=== PATIENT | male | born 1970 | race Caucasian/White ===

== ENCOUNTER 2017-06-18 13:15 | Observation (INO) | payer OTHER ==
--- NOTE | 2017-06-18 13:40 | ED PDOC ---
Arrival/HPI - General Chief Complaint: Chest Pain Time Seen by Provider: 06/18/17 13:31 Historian: Patient - History of Present Illness Narrative History of Present Illness (Text): you were treated in the ED today for hx of heart disease with stent and on aspirin/plavix which you take consistently, hypertension, cholesterol and today about 20-30min prior to ED visit right chest pain which is going to the right shoulder/back but otherwise without any trauma/injury/nausea/vomiting/headache/ dizziness/difficulty breathing/abdomen pain/numbness/tingling/loss of limb function/pain with urination/travel/prior blood clots/prior cancer. 06/18/17 13:38 PMD: Dr. Jessica Ortiz Time/Duration: 1/2 hour Symptom Onset: Sudden Symptom Course: Unchanged Quality: Aching Severity Level: 1 Activities at Onset: Rest Context: Sitting Past Medical History - Provider Review Nursing Documentation Reviewed: Yes - Travel History Have you recently traveled outside [place] w/in the past 3 mons?: No - Infectious Disease Hx of Infectious Diseases: None - Cardiac Hx Hypertension: Yes Other/Comment: cardiac stent - Psychiatric Hx Substance Use: No Family/Social History - Physician Review Nursing Documentation Reviewed: Yes Family/Social History: No Known Family HX Smoking Status: Unknown If Ever Smoked Hx Alcohol Use: No Hx Substance Use: No Allergies/Home Meds Allergies/Adverse Reactions: Allergies No Known Allergies Allergy (Verified 06/18/17 13:35) Home Medications: Home Meds Medication Instructions Recorded Confirmed Aspirin [Ecotrin] 81 mg PO DAILY 06/18/17 06/18/17 Clopidogrel [Plavix] 75 mg PO DAILY 06/18/17 06/18/17 Review of Systems - Review of Systems Constitutional: Normal Eyes: Normal ENT: Normal Respiratory: Normal Cardiovascular: Chest Pain Gastrointestinal: Normal Genitourinary Male: Normal Musculoskeletal: Normal Skin: Normal Neurological: Normal Endocrine: Normal Hemo/Lymphatic: Normal Psychiatric: Normal Physical Exam Vital Signs Reviewed: Yes Vital Signs Temp Pulse Resp BP Pulse Ox 06/18/17 13:36 98.4 F 115 H 20 164/87 H 99 06/18/17 13:35 97.8 F 108 H 17 164/87 H 98 Temperature: Afebrile Blood Pressure: Normal Pulse: Regular Respiratory Rate: Normal Appearance: Positive for: Well-Appearing, Non-Toxic, Comfortable Pain Distress: None Mental Status: Positive for: Alert and Oriented X 3 - Systems Exam Head: Present: Atraumatic, Normocephalic Pupils: Present: PERRL Extroacular Muscles: Present: EOMI Conjunctiva: Present: Normal Ears: Present: Normal Mouth: Present: Moist Mucous Membranes Pharnyx: Present: Normal Nose (External): Present: Atraumatic Nose (Internal): Present: Normal Inspection Neck: Present: Normal Range of Motion Respiratory/Chest: Present: Clear to Auscultation, Good Air Exchange Cardiovascular: Present: Regular Rate and Rhythm Abdomen: No: Tenderness, Distention, Normal Bowel Sounds, Peritoneal Signs, Rebound, Guarding, McBurney's Point Tender, Rovsing's Sign Present, Hernias, Feeding Tubes, Ostomy Tubes, Mass/Organomegaly, Scars, Other Back: Present: Normal Inspection Upper Extremity: Present: Normal Inspection Lower Extremity: Present: Normal Inspection Neurological: Present: GCS=15, CN II-XII Intact, Speech Normal, Motor Func Grossly Intact Skin: Present: Warm, Normal Color Psychiatric: Present: Alert, Oriented x 3, Normal Insight, Normal Concentration Medical Decision Making ED Course and Treatment: you were treated in the ED today for hx of heart disease with stent and on aspirin/plavix which you take consistently, hypertension, cholesterol and today about 20-30min prior to ED visit right chest pain which is going to the right shoulder/back but otherwise without any trauma/injury/nausea/vomiting/headache/ dizziness/difficulty breathing/abdomen pain/numbness/tingling/loss of limb function/pain with urination/travel/prior blood clots/prior cancer. You were otherwise breathing easily, pink moist lips, smiling and talking easily, good strength/sensation, alert/oriented, walking easily, clear lungs, no abdomen tenderness, no fever temp 98.7, fast heart rate 108 and repeat 115, stable breathing rate 17, excellent oxygen level 98% room air, elevated blood pressure 164/87 which we recommend repeat in 2-3 days primary care office to determine further treatment, you have blood tests no infection count 5.7, stable blood level hemoglobin 13/platelets 222, stable chemistry, except for low potassium 3.4, heart blood test less than 0.01, low risk of blood clot less than 200, radiology chest xray no acute, ECG normal sinus rhythm, aspirin, morphine, potassium replacement, observation done in the ED with stable. 06/18/17 13:40 06/18/2017 15:22 Chest X-ray IMPRESSION: No acute cardiopulmonary disease appreciated. Dictator: Kemal Nava MD 06/18/17 15:43 d/w Dr. Bauer who accepted the patient for chest pain, telemetry observation. - Lab Interpretations Lab Results: 06/18/17 13:40 06/18/17 13:40 Lab Results 06/18/17 14:40: Urine Color Yellow, Urine Appearance Clear, Urine pH 6.5, Ur Specific [place] <= 1.005, Urine Protein Negative, Urine Glucose (UA) Negative, Urine Ketones Negative, Urine Blood Negative, Urine Nitrate Negative, Urine Bilirubin Negative, Urine Urobilinogen 0.2, Ur Leukocyte Esterase Negative 06/18/17 13:40: PT 11.0, INR 0.97, APTT 28.8, D-Dimer, Quantitative < 200 06/18/17 13:40: Sodium 140, Potassium 3.4 L, Chloride 104, Carbon Dioxide 24, Anion Gap 16, BUN 13, Creatinine 0.9, Est GFR ( Amer) > 60, Est GFR (Non- Af Amer) > 60, Random Glucose 154 H, Calcium 9.8, Magnesium 1.8, Total Bilirubin 0.5, AST 34, ALT 40, Alkaline Phosphatase 72, Lactate Dehydrogenase 459, Total Creatine Kinase 333 H, CK-MB (CK-2) 3.7 H, CK-MB (CK-2) % Cancelled, Troponin I < 0.01, NT-Pro-B Natriuret Pep < 11.1, Total Protein 7.3, Albumin 4.2 , Globulin 3.1, Albumin/Globulin Ratio 1.4 06/18/17 13:40: WBC 5.7, RBC 5.11, Hgb 13.8 L, Hct 40.4 L, MCV 79.1 L, MCH 27.0 , MCHC 34.2, RDW 13.5, Plt Count 222, MPV 10.9, Gran % 53.8, Lymph % (Auto) 36.4 H, [place] % (Auto) 7.5 H, Eos % (Auto) 2.1, Baso % (Auto) 0.2, Gran # 3.09, Lymph # (Auto) 2.1, [place] # (Auto) 0.4, Eos # (Auto) 0.1, Baso # (Auto) 0.01 I have reviewed the lab results: Yes - RAD Interpretation Radiology Orders: 06/18/17 13:36 CHEST PORTABLE [RAD] Stat 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 Operator: Radiologist (see mdm) - EKG Interpretation Interpreted by ED Physician: Yes (NSR, flipped t waves avr, v2, iii) Type: 12 lead EKG - Medication Orders Current Medication Orders: Discontinued Medications Aspirin (Aspirin) 325 mg PO STAT STA Stop: 06/18/17 13:36 Last Admin: 06/18/17 13:47 Dose: 325 mg Morphine Sulfate (Morphine) 4 mg IVP STAT STA Stop: 06/18/17 15:21 Ondansetron HCl (Zofran Inj) 4 mg IVP STAT STA Stop: 06/18/17 15:21 Potassium Chloride (K-Dur 20 Meq Er Tab) 40 meq PO STAT STA Stop: 06/18/17 15:42 Disposition/Present on Arrival - Present on Arrival Any Indicators Present on Arrival: No History of DVT/PE: No History of Uncontrolled Diabetes: No Urinary Catheter: No History of Decub. Ulcer: No History Surgical Site Infection Following: CABG - Mediastinitis, None - Disposition Have Diagnosis and Disposition been Completed?: Yes Diagnosis: Chest pain Disposition: HOSPITALIZED Disposition Time: 15:45 Patient Plan: Telemetry Condition: STABLE Discharge Instructions (ExitCare): Chest Pain (ED) Referrals: Jessica Ortiz MD [Primary Care Provider] - Follow up with primary Forms: [employer] (Japanese)
[2017-06-18 13:54] LABS: BASO # 0.01 K/mm3 (0.0-2.0); BASO % 0.2 % (0.0-3.0); EOS # 0.1 (0.0-0.7); EOS % 2.1 % (1.5-5.0); GRAN # 3.09 (1.4-6.5); GRAN % 53.8 % (50.0-68.0); HEMOGLOBIN 13.8 g/dL (14.0-18.0); LYMPH # 2.1 (1.2-3.4); LYMPH % 36.4 % (22.0-35.0); MEAN CELL VOLUME 79.1 fl (80.0-105.0); MEAN CORPUSCULAR HGB CONC 34.2 g/dl (31.0-37.0); MEAN PLATELET VOLUME 10.9 fl (7.0-11.0); MONO # 0.4 (0.1-0.6); MONO % 7.5 % (1.0-6.0); RBC 5.11 10^6/uL (3.5-6.1); RED CELL DISTRIBUTION WIDTH 13.5 % (11.5-14.5); WHITE BLOOD COUNT 5.7 10^3/ul (4.5-11.0)
[2017-06-18 14:06] LABS: ALB/GLOB RATIO 1.4 (1.1-1.8); ALBUMIN 4.2 g/dL (3.0-4.8); ALT/SGPT 40 U/L (7-56); AST/SGOT 34 U/L (17-59); BLOOD UREA NITROGEN 13 mg/dL (7-21); CALCIUM 9.8 mg/dL (8.4-10.5); GFR AFRICAN-AMERICAN > 60; GFR NON-AFRICAN AMERICAN > 60; INR 0.97 (0.93-1.08); MAGNESIUM 1.8 mg/dL (1.7-2.2); PARTIAL THROMBOPLASTIN TIME 28.8 Seconds (25.1-36.5)
[2017-06-18 14:18] LABS: TROPONIN I < 0.01 ng/mL
[2017-06-18 14:19] LABS: B-TYPE NATRIURETIC PEPTIDE < 11.1 pg/mL (0-450)
[2017-06-18 14:20] LABS: D DIMER < 200 ng/mL (0-243)
[2017-06-18 14:22] LABS: CK-MB 3.7 ng/mL (0.0-3.6)
[2017-06-18 15:12] LABS: PH,URINE 6.5 (4.7-8.0); URINE BILIRUBIN NEGATIVE (NEGATIVE); URINE BLOOD NEGATIVE (NEGATIVE); URINE GLUCOSE (UA) NEGATIVE (NEGATIVE); URINE LEUKOCYTE ESTERASE NEGATIVE Leu/uL (NEGATIVE); URINE NITRATE NEGATIVE (NEGATIVE); URINE PROTEIN NEGATIVE mg/dL (<30 mg/dL); URINE UROBILINOGEN 0.2 E.U./dL (<1 E.U./dL)
[2017-06-18 15:13] LABS: URINE APPEARANCE CLEAR (CLEAR); URINE COLOR YELLOW (YELLOW)
[2017-06-18] MEDS ORDERED: Morphine 4 mg/ml ISec IVP STA (15:20)
--- NOTE | 2017-06-18 15:23 | RAD ---
HISTORY: 46yoM, chest pain COMPARISON: No prior. FINDINGS: LUNGS: No active pulmonary disease. PLEURA: No significant pleural effusion identified, no pneumothorax apparent. CARDIOVASCULAR: Normal. OSSEOUS STRUCTURES: No significant abnormalities. VISUALIZED UPPER ABDOMEN: Normal. OTHER FINDINGS: None. IMPRESSION: No acute cardiopulmonary disease appreciated.
[2017-06-18] MEDS ORDERED: Potassium Chloride 20 mEq ER Tab PO STA (15:41)
--- NOTE | 2017-06-18 17:12 | CP.PCM.HP ---
<LópezSukhPeter - Last Filed: 06/18/17 17:25> History of Present Illness - History of Present Illness History of Present Illness: 46 year old male with past medical history of HLD, HTN, Heart disease status post 1 stent in 2005 presents with chest pain which began earlier today. 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 He tried to sit down and rest but it did not improve so he decided to come in to the hospital. The pain is non reproducible on palpation and he states it radiates to his neck and right arm. He also complains of numbness in his fingers which has improved. Along with the pain, the patient states he had some shortness of breath, increased sweating, but no palpitations. He states he had a stress test done 6 months ago, which was normal. Patient denies taking any medication for the pain. Patient denies abdominal pain, nausea, vomitng, fever, sore throat, or any other complaints at this time. 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 Lyons PMH: HLD, HTN, Heart disease status post 1 stent in 2005 PSH: none Allergies: none Social: denies alcohol, tobacco, or illicit drug use Meds: Per MAR Family Hsitory: denies Present on Admission - Present on Admission Any Indicators Present on Admission: No Review of Systems - Constitutional Constitutional: absent: Chills, Excessive Sweating, Fever, Headache - EENT Eyes: absent: Blurred Vision, Change in Vision Nose/Mouth/Throat: absent: Nasal Congestion, Nasal Discharge - Cardiovascular Cardiovascular: Chest Pain, Chest Pain at Rest, Dyspnea, Pain Radiating to Arm/ Neck/Jaw. absent: Irregular Heart Rhythm, Lightheadedness, Rapid Heart Rate - Respiratory Respiratory: Dyspnea. absent: Cough, Excessive Mucous Production - Gastrointestinal Gastrointestinal: absent: Constipation, Diarrhea, Nausea, Vomiting - Genitourinary Genitourinary: absent: Difficulty Urinating, Dysuria - Musculoskeletal Musculoskeletal: Neck Pain, Numbness Additional comments: numbness in right hand, neck pain on the right side in area of C5 - Neurological Neurological: absent: Dizziness, Headaches Past Patient History - Infectious Disease Hx of Infectious Diseases: None - Past Social History Smoking Status: Unknown If Ever Smoked - CARDIAC Hx Hypertension: Yes Other/Comment: cardiac stent - PSYCHIATRIC Hx Substance Use: No Meds Allergies/Adverse Reactions: Allergies Allergy/AdvReac Type Severity Reaction Status Date / Time No Known Allergies Allergy Verified 06/18/17 13:35 Physical Exam - Constitutional Appears: Non-toxic, No Acute Distress - Head Exam Head Exam: ATRAUMATIC, NORMAL INSPECTION, NORMOCEPHALIC - Eye Exam Eye Exam: EOMI, Normal appearance - ENT Exam ENT Exam: Mucous Membranes Moist, Normal Exam - Neck Exam Neck exam: Negative for: Lymphadenopathy - Respiratory Exam Respiratory Exam: Clear to Auscultation Bilateral, NORMAL BREATHING PATTERN - Cardiovascular Exam Cardiovascular Exam: Tachycardia, +S1, +S2 - GI/Abdominal Exam GI & Abdominal Exam: Normal Bowel Sounds, Soft. absent: Tenderness - Extremities Exam Extremities exam: Positive for: pedal pulses present. Negative for: pedal edema - Neurological Exam Neurological exam: Alert, Oriented x3 - Skin Skin Exam: Normal Color, Warm Results - Vital Signs Recent Vital Signs: Last Vital Signs Temp 98.4 F 06/18/17 13:36 Pulse 95 H 06/18/17 16:44 Resp 20 06/18/17 16:44 BP 140/90 06/18/17 16:44 Pulse Ox 96 06/18/17 16:44 - Labs Result Diagrams: 06/18/17 13:40 06/18/17 13:40 Assessment & Plan - Assessment and Plan (Free Text) Assessment: 46 year old male with past medical history of HLD, HTN, Heart disease status post 1 stent in 2005 presents with chest pain which began earlier today. Plan: 1. Chest Pain -EKG shows sinus tach, pending official read -Chest xray: no active disease -initial trop negative, will trend 2x additionally -cardio consulted, Herlinda, follow recs -TSH, T4 pending -Lipid panel pending -A1C pending -D-dimer negative -UDS pending -Echo ordered -Morphine 2Q6 for pain -aspirin, plavix, metoprolol 2. Neck Pain -Cervical xray ordered 3. HTN-chronic -BP 148/103 -continue home meds, except hydralizine due to tachycardia -continue to monitor 4. HLD -continue home statin and fenofibrate -lipid panel pending 5. CAD -continue aspirin and plavix 6. Hypokalemia -K 3.4 -repleted -monitor and recheck Prophylaxis -Protonix -heparin SC <Kari Bauer - Last Filed: 06/18/17 18:16> Results - Vital Signs Recent Vital Signs: Last Vital Signs Temp 98.4 F 06/18/17 13:36 Pulse 95 H 06/18/17 16:44 Resp 20 06/18/17 16:44 BP 140/90 06/18/17 16:44 Pulse Ox 96 06/18/17 16:44 - Labs Result Diagrams: 06/18/17 13:40 06/18/17 13:40 Attending/Attestation - Attestation I have personally seen and examined this patient.: Yes I have fully participated in the care of the patient.: Yes I have reviewed all pertinent clinical information: Yes Notes (Text): 06/18/17 18:13 46 year old male with past medical history of hypertension, dyslipidemia and CAD s/p stent (2005) who presents with complaint of right sided chest pain radiating to the neck. He reports he had a recent stress test about 4 months ago which was negative; will request for records. Will obtain serial cardiac enzymes to rule out ACS. Cardiology evaluation is requested and echocardiogram is ordered. Continue with home medications including aspirin and plavix. Will hold hydralazine for now given tachycardia. D-dimer is negative. TSH is ordered. Kari Bauer MD Hospitalist.
[2017-06-18] MEDS ORDERED: Sodium Chloride 0.9% 1,000 ML IV SCH (18:15)
[2017-06-18 21:14] LABS: TROPONIN I 0.01 ng/mL
[2017-06-18 21:20] LABS: T4 7.4 ug/dL (5.5-11.0)
[2017-06-18 21:31] VITALS: BMI 31.9
[2017-06-18] MEDS ORDERED: Pneumococcal 23-Valent Vaccine IM ONE (21:31)
[2017-06-18] MEDS ORDERED: Influenza Vaccine 60 mcg/0.5 mL SYR (4YR UP) IM ONE (21:31)
[2017-06-18] MEDS: Morphine 2 mg/ml ISec IVP PRN (22:04)
[2017-06-19] MEDS: Morphine 2 mg/ml ISec IVP PRN (05:53)
[2017-06-19] MEDS ORDERED: Pantoprazole 40 mg EC Tab PO SCH (06:00)
[2017-06-19 06:16] VITALS: RESP 18; O2SAT 98
[2017-06-19 06:31] LABS: BASO # 0.01 K/mm3 (0.0-2.0); BASO % 0.2 % (0.0-3.0); EOS # 0.1 (0.0-0.7); EOS % 2.1 % (1.5-5.0); GRAN # 2.48 (1.4-6.5); GRAN % 57.5 % (50.0-68.0); HEMOGLOBIN 14.3 g/dL (14.0-18.0); LYMPH # 1.4 (1.2-3.4); LYMPH % 32.6 % (22.0-35.0); MEAN CELL VOLUME 80.5 fl (80.0-105.0); MEAN CORPUSCULAR HEMOGLOBIN 27.1 pg (25.0-35.0); MEAN CORPUSCULAR HGB CONC 33.6 g/dl (31.0-37.0); MEAN PLATELET VOLUME 10.4 fl (7.0-11.0); MONO # 0.3 (0.1-0.6); MONO % 7.6 % (1.0-6.0); RBC 5.28 10^6/uL (3.5-6.1); RED CELL DISTRIBUTION WIDTH 13.8 % (11.5-14.5); WHITE BLOOD COUNT 4.3 10^3/ul (4.5-11.0)
[2017-06-19 07:08] LABS: ALB/GLOB RATIO 1.3 (1.1-1.8); ALBUMIN 4.1 g/dL (3.0-4.8); ALT/SGPT 38 U/L (7-56); AST/SGOT 29 U/L (17-59); BLOOD UREA NITROGEN 14 mg/dL (7-21); GFR AFRICAN-AMERICAN > 60; GFR NON-AFRICAN AMERICAN > 60
--- NOTE | 2017-06-19 08:43 | CP.PCM.PN ---
Subjective - Date & Time of Evaluation Date of Evaluation: 06/19/17 Time of Evaluation: 08:40 - Subjective Subjective: Progress note for Dr. Bauer Patient seen and examined at bedside. No acute events overnight. Patient states he still feels some chest pain, but is much better than on admission. Patient states the pain is worse on palpation of his right chest and expresses concern that the symptoms are similar to when he had to get a stent placed. Patient denies fever, chills, shortness of breath, cough, dizziness, weakness of upper extremities bilaterally. Objective - Vital Signs/Intake and Output Vital Signs (last 24 hours): Temp Pulse Resp BP Pulse Ox 97.5 F L 86 18 130/88 98 06/19/17 06:00 06/19/17 06:00 06/19/17 06:00 06/19/17 06:00 06/19/17 06:00 Intake and Output: 06/19/17 06/19/17 06:59 18:59 Intake Total 120 Balance 120 - Medications Medications: Current Medications Amlodipine Besylate (Norvasc) 10 mg PO DAILY [facility] Aspirin (Ecotrin) 81 mg PO DAILY [facility] Atorvastatin Calcium (Lipitor) 40 mg PO DIN [facility] Clopidogrel Bisulfate (Plavix) 75 mg PO DAILY [facility] Famotidine (Pepcid) 20 mg PO DAILY [facility] Last Admin: 06/18/17 22:04 Dose: 20 mg Fenofibrate (Tricor) 145 mg PO DAILY [facility] Heparin Sodium (Porcine) (Heparin) 5,000 units SC Q12 KODY PRN Reason: Protocol Last Admin: 06/18/17 22:03 Dose: 5,000 units Losartan Potassium (Cozaar) 100 mg PO DAILY [facility] Metoprolol Succinate (Toprol Xl) 100 mg PO DAILY [facility] Morphine Sulfate (Morphine) 2 mg IVP Q6H PRN PRN Reason: Pain, severe (8-10) Last Admin: 06/19/17 05:53 Dose: 2 mg - Labs Labs: 06/19/17 05:15 06/19/17 05:15 PT 11.0 SECONDS (9.4-12.5) 06/18/17 13:40 INR 0.97 (0.93-1.08) 06/18/17 13:40 APTT 28.8 Seconds (25.1-36.5) 06/18/17 13:40 - Constitutional Appears: Non-toxic, No Acute Distress - Head Exam Head Exam: ATRAUMATIC, NORMAL INSPECTION, NORMOCEPHALIC - Eye Exam Eye Exam: EOMI, Normal appearance Pupil Exam: NORMAL ACCOMODATION - ENT Exam ENT Exam: Mucous Membranes Moist, Normal Exam - Neck Exam Neck Exam: Full ROM - Respiratory Exam Respiratory Exam: Clear to Ausculation Bilateral, NORMAL BREATHING PATTERN. absent: Respiratory Distress - Cardiovascular Exam Cardiovascular Exam: REGULAR RHYTHM, +S1, +S2 - GI/Abdominal Exam GI & Abdominal Exam: Soft, Normal Bowel Sounds. absent: Tenderness, Hernia - Extremities Exam Extremities Exam: Full ROM, Normal Capillary Refill, Normal Inspection - Neurological Exam Neurological Exam: Alert, Awake, CN II-XII Intact, Oriented x3 - Psychiatric Exam Psychiatric exam: Normal Affect, Normal Mood. absent: Agitated, Anxious - Skin Skin Exam: Dry, Intact, Normal Color Assessment and Plan - Assessment and Plan (Free Text) Assessment: 46 M with past medical history of HTN, HLD, and stent placement presents with chest pain and right arm pain Chest pain, ACS r/o, History of stent placement Troponin I neg x 3 <0.01, 0.01, <0.01 f/u Echo Cardio Consult: Dr. Pate: to be discharged once echo is done and found to be normal ASA 81mg POQD Lipitor 30mg PO DIN Plavix 75mg PO QD Heparin 5000 u SCQ12 history of HTN Metoprolol Succinate 100mg PO QD Norvasc 10mg PO QD history of HLD Fenofibrate 145mg POQD Pain: Morphine 2 mg IVP Q6H PRN Diet: Heart Healthy Diet Prophylaxis Pepcid 20mg POQD Patient is on Heparin 5000 u SCQ12
--- NOTE | 2017-06-19 08:47 | CARD ---
APPROVED REPORT EKG Measurement Heart [id number] <Conclusion> Sinus tachycardia Possible Left atrial enlargement Q in III and Small Q in AVF.
--- NOTE | 2017-06-19 09:38 | RAD ---
PROCEDURE: Cervical Spine Radiographs. HISTORY: Pain. COMPARISON: None. FINDINGS: BONES: Alignment maintained. No fracture. Dens Intact. DISC SPACES: Normal. SOFT TISSUES: Normal. No prevertebral soft tissue swelling. OTHER FINDINGS: None. IMPRESSION: Normal cervical spine radiographs
[2017-06-19] MEDS ORDERED: Metoprolol Succinate 100 mg XL Tab PO SCH (10:00)
[2017-06-19 11:52] VITALS: BP 124/84; TEMP 98
--- NOTE | 2017-06-19 16:56 | CP.PCM.DIS ---
<ZacheryClaudia - Last Filed: 06/19/17 16:54> Provider - Provider Date of Admission: 06/18/17 15:41 Attending physician: Kari Bauer MD Primary care physician: Jessica Ortiz MD Consults: DR. Pate Time Spent in preparation of Discharge (in minutes): 35 Hospital Course - Lab Results Lab Results: Most Recent Lab Values WBC 4.3 10^3/ul (4.5-11.0) L D 06/19/17 05:15 RBC 5.28 10^6/uL (3.5-6.1) 06/19/17 05:15 Hgb 14.3 g/dL (14.0-18.0) 06/19/17 05:15 Hct 42.5 % (42.0-52.0) 06/19/17 05:15 MCV 80.5 fl (80.0-105.0) 06/19/17 05:15 MCH 27.1 pg (25.0-35.0) 06/19/17 05:15 MCHC 33.6 g/dl (31.0-37.0) 06/19/17 05:15 RDW 13.8 % (11.5-14.5) 06/19/17 05:15 Plt Count 199 10^3/uL (120.0-450.0) 06/19/17 05:15 MPV 10.4 fl (7.0-11.0) 06/19/17 05:15 Gran % 57.5 % (50.0-68.0) 06/19/17 05:15 Lymph % (Auto) 32.6 % (22.0-35.0) 06/19/17 05:15 Ellis % (Auto) 7.6 % (1.0-6.0) H 06/19/17 05:15 Eos % (Auto) 2.1 % (1.5-5.0) 06/19/17 05:15 Baso % (Auto) 0.2 % (0.0-3.0) 06/19/17 05:15 Gran # 2.48 (1.4-6.5) 06/19/17 05:15 Lymph # (Auto) 1.4 (1.2-3.4) 06/19/17 05:15 Ellis # (Auto) 0.3 (0.1-0.6) 06/19/17 05:15 Eos # (Auto) 0.1 (0.0-0.7) 06/19/17 05:15 Baso # (Auto) 0.01 K/mm3 (0.0-2.0) 06/19/17 05:15 PT 11.0 SECONDS (9.4-12.5) 06/18/17 13:40 INR 0.97 (0.93-1.08) 06/18/17 13:40 APTT 28.8 Seconds (25.1-36.5) 06/18/17 13:40 D-Dimer, Quantitative < 200 ng/mL (0-243) 06/18/17 13:40 Sodium 143 mmol/L (132-148) 06/19/17 05:15 Potassium 4.4 mmol/L (3.6-5.0) 06/19/17 05:15 Chloride 106 mmol/L (98-107) 06/19/17 05:15 Carbon Dioxide 29 mmol/L (21-33) 06/19/17 05:15 Anion Gap 12 (10-20) 06/19/17 05:15 BUN 14 mg/dL (7-21) 06/19/17 05:15 Creatinine 1.1 mg/dl (0.8-1.5) 06/19/17 05:15 Est GFR ( Amer) > 60 06/19/17 05:15 Est GFR (Non-Af Amer) > 60 06/19/17 05:15 Random Glucose 98 mg/dL (70-110) 06/19/17 05:15 Hemoglobin A1c 5.3 % (4.2-6.5) 06/18/17 20:40 Calcium 10.0 mg/dL (8.4-10.5) 06/19/17 05:15 Magnesium 1.8 mg/dL (1.7-2.2) 06/18/17 13:40 Total Bilirubin 0.5 mg/dL (0.2-1.3) 06/19/17 05:15 AST 29 U/L (17-59) 06/19/17 05:15 ALT 38 U/L (7-56) 06/19/17 05:15 Alkaline Phosphatase 70 U/L (38-126) 06/19/17 05:15 Lactate Dehydrogenase 459 U/L (333-699) 06/18/17 13:40 Total Creatine Kinase 333 U/L (35-230) H 06/18/17 13:40 CK-MB (CK-2) 3.7 ng/mL (0.0-3.6) H 06/18/17 13:40 CK-MB (CK-2) % Cancelled 06/18/17 13:40 Troponin I < 0.01 ng/mL 06/19/17 02:00 NT-Pro-B Natriuret Pep < 11.1 pg/mL (0-450) 06/18/17 13:40 Total Protein 7.3 g/dL (5.8-8.3) 06/19/17 05:15 Albumin 4.1 g/dL (3.0-4.8) 06/19/17 05:15 Globulin 3.1 gm/dL 06/19/17 05:15 Albumin/Globulin Ratio 1.3 (1.1-1.8) 06/19/17 05:15 Triglycerides 132 mg/dL (35-160) 06/18/17 20:40 Cholesterol 171 mg/dL (130-200) 06/18/17 20:40 LDL Cholesterol Direct 105 mg/dL (0-129) 06/18/17 20:40 HDL Cholesterol 42 mg/dL (29-60) 06/18/17 20:40 Thyroxine (T4) 7.4 ug/dL (5.5-11.0) 06/18/17 20:40 TSH 3rd Generation 2.49 mIU/mL (0.46-4.68) 06/18/17 20:40 Urine Color Yellow (YELLOW) 06/18/17 14:40 Urine Appearance Clear (CLEAR) 06/18/17 14:40 Urine pH 6.5 (4.7-8.0) 06/18/17 14:40 Ur Specific Reedy <= 1.005 (1.005-1.035) 06/18/17 14:40 Urine Protein Negative mg/dL (<30 mg/dL) 06/18/17 14:40 Urine Glucose (UA) Negative mg/dL (NEGATIVE) 06/18/17 14:40 Urine Ketones Negative mg/dL (NEGATIVE) 06/18/17 14:40 Urine Blood Negative (NEGATIVE) 06/18/17 14:40 Urine Nitrate Negative (NEGATIVE) 06/18/17 14:40 Urine Bilirubin Negative (NEGATIVE) 06/18/17 14:40 Urine Urobilinogen 0.2 E.U./dL (<1 E.U./dL) 06/18/17 14:40 Ur Leukocyte Esterase Negative Vernon/uL (NEGATIVE) 06/18/17 14:40 - Hospital Course Hospital Course: 46 year old male with past medical history of HLD, HTN, Heart disease status post 1 stent in 2005 presents with chest pain which began earlier today. 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 He tried to sit down and rest but it did not improve so he decided to come in to the hospital. The pain is non reproducible on palpation and he states it radiates to his neck and right arm. He also complains of numbness in his fingers which has improved. Along with the pain, the patient states he had some shortness of breath, increased sweating, but no palpitations. He states he had a stress test done 6 months ago, which was normal. Patient denies taking any medication for the pain. Patient denies abdominal pain, nausea, vomitng, fever, sore throat, or any other complaints at this time. Cardiology Consult: Dr. Pate saw the patient, ordered Echo. Troponin Is negative x 3. Patient seen and examined at bedside. No acute events overnight. Patient states he still feels some chest pain, but is much better than on admission. Patient states the pain is worse on palpation of his right chest and expresses concern that the symptoms are similar to when he had to get a stent placed. Echo showed normal EF and was cleared for discharge. Patient discharged and instructed to follow up with Subcontract Administrator Dr. Lyons as outpatient for further workup. - Date & Time of H&P Date of H&P: 06/19/17 Time of H&P: 16:54 Discharge Exam - Head Exam Head Exam: ATRAUMATIC, NORMAL INSPECTION, NORMOCEPHALIC - Eye Exam Eye Exam: EOMI, Normal appearance Pupil Exam: NORMAL ACCOMODATION, PERRL - ENT Exam ENT Exam: Mucous Membranes Moist, Normal Exam - Neck Exam Neck exam: Full Rom - Respiratory Exam Respiratory Exam: NORMAL BREATHING PATTERN. absent: Accessory Muscle Use, Decreased Breath Sounds, Rhonchi, Wheezes - Cardiovascular Exam Cardiovascular Exam: REGULAR RHYTHM, +S1, +S2. absent: Bradycardia, Tachycardia - GI/Abdominal Exam GI & Abdominal Exam: Normal Bowel Sounds, Soft. absent: Tenderness - Back Exam Back exam: FULL ROM - Neurological Exam Neurological exam: Alert, CN II-XII Intact, Normal Gait, Oriented x3 - Psychiatric Exam Psychiatric exam: Normal Affect, Normal Mood Discharge Plan - Follow Up Plan Condition: STABLE Disposition: HOME/ ROUTINE Additional Instructions: follow up with primary care doctor in one week Follow up with well tender Dr. Lyons for further cardiac workup return to ED if symptoms worsen Referrals: Jessica Ortiz MD [Primary Care Provider] - <Kari Bauer - Last Filed: 06/19/17 18:23> Provider - Provider Date of Admission: 06/18/17 15:41 Attending physician: Kari Bauer MD Primary care physician: Jessica Ortiz MD Hospital Course - Lab Results Lab Results: Most Recent Lab Values WBC 4.3 10^3/ul (4.5-11.0) L D 06/19/17 05:15 RBC 5.28 10^6/uL (3.5-6.1) 06/19/17 05:15 Hgb 14.3 g/dL (14.0-18.0) 06/19/17 05:15 Hct 42.5 % (42.0-52.0) 06/19/17 05:15 MCV 80.5 fl (80.0-105.0) 06/19/17 05:15 MCH 27.1 pg (25.0-35.0) 06/19/17 05:15 MCHC 33.6 g/dl (31.0-37.0) 06/19/17 05:15 RDW 13.8 % (11.5-14.5) 06/19/17 05:15 Plt Count 199 10^3/uL (120.0-450.0) 06/19/17 05:15 MPV 10.4 fl (7.0-11.0) 06/19/17 05:15 Gran % 57.5 % (50.0-68.0) 06/19/17 05:15 Lymph % (Auto) 32.6 % (22.0-35.0) 06/19/17 05:15 Ellis % (Auto) 7.6 % (1.0-6.0) H 06/19/17 05:15 Eos % (Auto) 2.1 % (1.5-5.0) 06/19/17 05:15 Baso % (Auto) 0.2 % (0.0-3.0) 06/19/17 05:15 Gran # 2.48 (1.4-6.5) 06/19/17 05:15 Lymph # (Auto) 1.4 (1.2-3.4) 06/19/17 05:15 Ellis # (Auto) 0.3 (0.1-0.6) 06/19/17 05:15 Eos # (Auto) 0.1 (0.0-0.7) 06/19/17 05:15 Baso # (Auto) 0.01 K/mm3 (0.0-2.0) 06/19/17 05:15 PT 11.0 SECONDS (9.4-12.5) 06/18/17 13:40 INR 0.97 (0.93-1.08) 06/18/17 13:40 APTT 28.8 Seconds (25.1-36.5) 06/18/17 13:40 D-Dimer, Quantitative < 200 ng/mL (0-243) 06/18/17 13:40 Sodium 143 mmol/L (132-148) 06/19/17 05:15 Potassium 4.4 mmol/L (3.6-5.0) 06/19/17 05:15 Chloride 106 mmol/L (98-107) 06/19/17 05:15 Carbon Dioxide 29 mmol/L (21-33) 06/19/17 05:15 Anion Gap 12 (10-20) 06/19/17 05:15 BUN 14 mg/dL (7-21) 06/19/17 05:15 Creatinine 1.1 mg/dl (0.8-1.5) 06/19/17 05:15 Est GFR ( Amer) > 60 06/19/17 05:15 Est GFR (Non-Af Amer) > 60 06/19/17 05:15 Random Glucose 98 mg/dL (70-110) 06/19/17 05:15 Hemoglobin A1c 5.3 % (4.2-6.5) 06/18/17 20:40 Calcium 10.0 mg/dL (8.4-10.5) 06/19/17 05:15 Magnesium 1.8 mg/dL (1.7-2.2) 06/18/17 13:40 Total Bilirubin 0.5 mg/dL (0.2-1.3) 06/19/17 05:15 AST 29 U/L (17-59) 06/19/17 05:15 ALT 38 U/L (7-56) 06/19/17 05:15 Alkaline Phosphatase 70 U/L (38-126) 06/19/17 05:15 Lactate Dehydrogenase 459 U/L (333-699) 06/18/17 13:40 Total Creatine Kinase 333 U/L (35-230) H 06/18/17 13:40 CK-MB (CK-2) 3.7 ng/mL (0.0-3.6) H 06/18/17 13:40 CK-MB (CK-2) % Cancelled 06/18/17 13:40 Troponin I < 0.01 ng/mL 06/19/17 02:00 NT-Pro-B Natriuret Pep < 11.1 pg/mL (0-450) 06/18/17 13:40 Total Protein 7.3 g/dL (5.8-8.3) 06/19/17 05:15 Albumin 4.1 g/dL (3.0-4.8) 06/19/17 05:15 Globulin 3.1 gm/dL 06/19/17 05:15 Albumin/Globulin Ratio 1.3 (1.1-1.8) 06/19/17 05:15 Triglycerides 132 mg/dL (35-160) 06/18/17 20:40 Cholesterol 171 mg/dL (130-200) 06/18/17 20:40 LDL Cholesterol Direct 105 mg/dL (0-129) 06/18/17 20:40 HDL Cholesterol 42 mg/dL (29-60) 06/18/17 20:40 Thyroxine (T4) 7.4 ug/dL (5.5-11.0) 06/18/17 20:40 TSH 3rd Generation 2.49 mIU/mL (0.46-4.68) 06/18/17 20:40 Urine Color Yellow (YELLOW) 06/18/17 14:40 Urine Appearance Clear (CLEAR) 06/18/17 14:40 Urine pH 6.5 (4.7-8.0) 06/18/17 14:40 Ur Specific Reedy <= 1.005 (1.005-1.035) 06/18/17 14:40 Urine Protein Negative mg/dL (<30 mg/dL) 06/18/17 14:40 Urine Glucose (UA) Negative mg/dL (NEGATIVE) 06/18/17 14:40 Urine Ketones Negative mg/dL (NEGATIVE) 06/18/17 14:40 Urine Blood Negative (NEGATIVE) 06/18/17 14:40 Urine Nitrate Negative (NEGATIVE) 06/18/17 14:40 Urine Bilirubin Negative (NEGATIVE) 06/18/17 14:40 Urine Urobilinogen 0.2 E.U./dL (<1 E.U./dL) 06/18/17 14:40 Ur Leukocyte Esterase Negative Vernon/uL (NEGATIVE) 06/18/17 14:40 Attending/Attestation - Attestation I have personally seen and examined this patient.: Yes I have fully participated in the care of the patient.: Yes I have reviewed all pertinent clinical information, including history, physical exam and plan: Yes Notes (Text): 06/19/17 18:18 46 year old male with past medical history of hypertension, dyslipidemia and CAD s/p stent (2005) who presented with complaint of right sided chest pain radiating to the neck. He reported he had a recent stress test about 4 months ago which was negative. Serial cardiac enzymes were negative and ACS was ruled out ACS. He was seen by cardiology who reviewed echocardiogram and cleared for discharge with outpatient follow up. Patient is discharged home to follow up with pmd and well tender as outpatient. Continue with home medications. Kari Baeur MD Hospitalist.
[2017-06-19 18:16] VITALS: PULSE 79
--- NOTE | 2017-06-19 23:42 | CON ---
DATE: CARDIOLOGY CONSULTATION REASON FOR CONSULTATION: Chest pain. HISTORY OF PRESENT ILLNESS: Patient is a 46-year-old [place] male who has a history of hypertension, has history of coronary artery disease,underwent coronary stenting some 7 years ago at [facility] by his manager game, Dr. yLons. The patient presented because of right shoulder pain and he was worried about his heart as he stated that it was similar to his earlier presentation, when he underwent the stent. The patient denies any associated retrosternal chest pain, diaphoresis, or shortness of breath. SOCIAL HISTORY: Patient is nonsmoker. He works in the [employer] in [place]. MEDICATIONS: Cozaar 100 mg once a day, aspirin 81 mg once a day, heparin 5000 units subcutaneous twice a day, Lipitor 40 mg once a day, Norvasc 10 mg once a day, morphine sulfate 2 mg intravenously q.6 hours, Plavix 75 mg once a day, Toprol-XL 100 mg once a day, TriCor 145 mg once a day. PHYSICAL EXAMINATION: GENERAL: The patient is a middle-aged male, who does not appear to be in any distress. VITAL SIGNS: Blood pressure 157/90, heart rate 87, temperature 97.5, respirations 18. HEENT: Normocephalic. NECK: No JVD. CHEST: Clear. HEART: S1 and S2 regular. ABDOMEN: Soft. EXTREMITIES: No edema. LABORATORY DATA: Three sets of troponins are negative. Lipid profile is within normal limits. Today's SMA-7 is entirely within normal limits. Hemoglobin and hematocrit 14.3 and 42.5, white count 4.3, platelet count 199,000. Cervical spine x-ray, normal study. EKG revealed sinus tachycardia at the rate of 110. D-dimer was within normal limits. Chest x-ray was unremarkable. ASSESSMENT: 1. Chest pain, myocardial infarction is ruled out. 2. Hypertension. 3. History of coronary artery disease. RECOMMENDATIONS: Continue current aspirin and Plavix, Toprol-XL, Cozaar, and Lipitor therapy. I would obtain an echocardiographic study. Tanner Pate MD [facility] # [id number]
--- NOTE | 2017-06-20 15:18 | CARD ---
APPROVED REPORT EXAM: Two-dimensional and M-mode echocardiogram with Doppler and color Doppler. INDICATION Chest Pain 2D DIMENSIONS Left Atrium (2D)3.7 (1.6-4.0cm)IVSd1.1 (0.7-1.1cm) LVDd4.9 (3.9-5.9cm)PWd1.4 (0.7-1.1cm) LVDs3.4 (2.5-4.0cm)FS (%) 31.2 % LVEF (%)58.6 (>50%) M-Mode DIMENSIONS Aortic Root3.50 (2.2-3.7cm)Aortic Cusp Exc.2.10 (1.5-2.0cm) Aortic Valve AoV Peak Acqeouta995.0cm/Angelia Peak GR.5mmHg Mitral Valve MV E Rsvphjtr97.1cm/sMV A Apaoeduc69.6cm/sE/A ratio0.9 TDI Lateral E' Peak V8.48cm/sMedial E' Peak V4.78cm/sE/Lateral E'7.8 E/Medial E'13.8 Pulmonary Valve PV Peak Cwmxukfi99.2cm/sPV Peak Grad.1mmHg Tricuspid Valve TR Peak [id number]/sRAP [id number] Peak Gr.12mmHg [id number] LEFT VENTRICLE The left ventricle is normal size. There is borderline to mild concentric left ventricular hypertrophy. The left ventricular function is normal.EF-55-60% There is normal LV segmental wall motion. Transmitral Doppler flow pattern is Grade III-reversible restrictive diastolic dysfunction. No left ventricle thrombus noted on this study. There is no ventricular septal defect visualized. There is no left ventricular aneurysm. There is no mass noted in the left ventricle. RIGHT VENTRICLE The right ventricle is normal size. There is normal right ventricular wall thickness. The right ventricular systolic function is normal. ATRIA The left atrium size is normal. The right atrium size is normal. The interatrial septum is intact with no evidence for an atrial septal defect. AORTIC VALVE The aortic valve is thickened but opens well. There is trace aortic regurgitation. There is no aortic valvular stenosis. There is no aortic valvular vegetation. MITRAL VALVE The mitral valve is thickened but opens well. Mitral regurgitation is mild. There is no mitral valve stenosis. There is no evidence of mitral valve prolapse. TRICUSPID VALVE The tricuspid valve leaflets are thickened , but open well. There is trace tricuspid regurgitation.RVSP-22 mmof Hg. There is no tricuspid valve stenosis. There is no tricuspid valve prolapse or vegetation. PULMONIC VALVE The pulmonary valve is normal in structure. There is no pulmonic valvular regurgitation. There is no pulmonic valvular stenosis. GREAT VESSELS The aortic root is normal in size. The ascending aorta is normal in size. The pulmonary artery is normal. The IVC is normal in size and collapses >50% with inspiration. PERICARDIAL EFFUSION There is no pleural effusion. There is no pericardial effusion. <Conclusion> Normal chamber Size. EF-55-60% Mitral regurgitation is mild. There is trace tricuspid regurgitation.RVSP-22 mmof Hg. no vegetation or thrombus noted.
== END 2017-06-19 19:28 | disposition home or self-care (01) ==
LOC: ED 13:15 → ERH 15:41 → 2RNO 17:00
PROVIDERS: ADMIT Internal Medicine; ATTEND Internal Medicine
DX: R07.9 Chest pain, unspecified (principal); M54.2 Cervicalgia; E87.6 Hypokalemia; I10 Essential (primary) hypertension; E78.5 Hyperlipidemia, unspecified; I25.10 Atherosclerotic heart disease of native coronary artery without angina pectoris; Z95.5 Presence of coronary angioplasty implant and graft
CPT/HCPCS: 36415; 71045; 72050; 80053; 80061; 81003; 82550; 82553; 83036; 83615; 83735; 83880; 84436; 84443; 84484; 85025; 85378; 85610; 85730; 93005; 93306; 96374; 99285; G0378; J1644; J2270; J2405